=== PATIENT | female | born 1995 | race Caucasian/White ===

== ENCOUNTER 2016-02-22 03:28 | Emergency (ER) | payer SELFPAY ==
[~2016-02-22] VITALS: Ht 167.6 cm; Wt 49.9 kg
[2016-02-22 04:34] VITALS: BP 124/76
== END 2016-02-22 04:37 | disposition home or self-care (01) ==
LOC: ER 03:30
DX: F10.129 Alcohol abuse with intoxication, unspecified (principal); R79.89 Other specified abnormal findings of blood chemistry
CPT/HCPCS: 82962; 99283; A4606; Z7610